=== PATIENT | male | born 1940 | race Caucasian/White ===

== ENCOUNTER → 2018-12-19 | Outpatient (REF) | payer MEDICARE, OTHER | LOC: M LAB REF 16:12 | PROVIDERS: ATTEND Ophthalmology | DX: L82.1 Other seborrheic keratosis (principal) ==

== ENCOUNTER 2020-08-19 20:51 | Emergency (ER) | payer MEDICARE, BC, OTHER ==
[~2020-08-19] VITALS: Ht 177.8 cm; Wt 96.7 kg
[2020-08-19] MEDS ORDERED: JARD1TAB3 (21:00)
[2020-08-19] MEDS ORDERED: GLYB5TA (21:00)
[2020-08-19] MEDS ORDERED: METF10004 (21:00)
[2020-08-19] MEDS ORDERED: ATOR40TA75 (21:00)
[2020-08-19] MEDS ORDERED: LISI2.5T2 (21:00)
[2020-08-19] MEDS ORDERED: TETRACAINE 0.5% OPHTH SOLN 4ML OD ONE (22:45)
[2020-08-19] MEDS ORDERED: FLUORESCEIN OPHTH 1 MG STRIP OD ONE (22:45)
[2020-08-19] MEDS ORDERED: TIMOLOL MALEATE 0.5% OPHTH SOLN 5 ML OD STA (23:29)
[2020-08-20] MEDS ORDERED: prednisoLONE ACET 1% OPHTH SUSP 5ML OD STA (00:22)
[2020-08-20] MEDS ORDERED: PRED1SUS30 OP (00:25)
[2020-08-20 00:44] VITALS: BP 144/75
== END 2020-08-20 00:48 | disposition home or self-care (01) ==
LOC: M ED 20:51
DX: H57.89 Other specified disorders of eye and adnexa (principal); E11.9 Type 2 diabetes mellitus without complications; I10 Essential (primary) hypertension; E78.5 Hyperlipidemia, unspecified; Z96.1 Presence of intraocular lens; Z79.84 Long term (current) use of oral hypoglycemic drugs; Z79.899 Other long term (current) drug therapy